=== PATIENT | male | born 1950 | race Caucasian/White ===

== ENCOUNTER 2017-09-27 01:14 | Inpatient (IN) | payer OTHER, MEDICARE ==
[~2017-09-27] VITALS: Ht 182.9 cm; Wt 89.4 kg
[~2017-09-27 01:14] MED LIST: ADVIL200 M1 PO; ALFUZOSIN HCL E10 MG PO; BYSTOLIC5 M1 PO; LISINOPRIL20 M1 PO; METROGEL60 GM TOP; MULTIVITAMINS1 EAC9 PO; SALINE NASAL SP30 ML NASB; TRAZODONE HCL50 M1 PO; TURMERIC500 M2 PO; VITAMIN C500 M9 PO
--- NOTE | 2017-09-27 11:00 | Admission Core Measures ---
Acute Coronary Syndrome (CM) ACS Core Measures Acute Coronary Syndrome Diagnosis No Congestive Heart Failure (NEW) CHF Core Measures Congestive Heart Failure Diagnosis No Cerebrovascular Accident (NEW) CVA Core Measures CVA/TIA Diagnosis No Venous Thromboembolism VTE Core Sonia (View Protocol) VTE Risk Factors Surgery No Mechanical VTE Prophylaxis d/t N/A MechProphylax Ordered No VTE Pharm Prophylaxis d/t NA PharmProphylax ordered Problem List As ranked by this Provider includes Assessment & Plan 1. Unilateral primary osteoarthritis, left hip HOME MEDS Home Med List Alfuzosin HCl (Alfuzosin HCl ER) 10 MG TAB.ER.24H 1 TAB PO QPM PROSTATE ( Reported) Ascorbic Acid (Vitamin C) (Unknown Strength) CAPSULE (Unknown Dose) PO DAILY SUPPLEMENT (Reported) Ibuprofen (Advil) 200 MG CAPSULE 1 CAP PO DAILY PAIN/INFLAMMATION (Reported) Lisinopril 20 MG TABLET 1 TAB PO QPM BP (Reported) Metronidazole (Metrogel) 1 % GEL..GRAM. 1 AUDREY TOP QPM ROSACEA (Reported) Multiple Vitamin (Multivitamins) 1 EACH TABLET 1 TAB PO DAILY SUPPLEMENT ( Reported) Nebivolol HCl (Bystolic) 5 MG TABLET 1 TAB PO QAM BP (Reported) Sodium Chloride (Saline Nasal [place]) 0.65 % SPRAY 1 SPRAY NASB PRN NASAL DRYNESS (Reported) Trazodone HCl 50 MG TABLET 1 TAB PO QPM SLEEP (Reported) Turmeric Root Extract (Turmeric) (Unknown Strength) CAPSULE (Unknown Dose) PO DAILY SUPPLEMENT (Reported)
--- NOTE | 2017-09-27 11:15 | RADIOLOGY REPORT ---
EXAMINATION: AP and lateral views of the left hip CLINICAL INFORMATION: PACU COMPARISON: None available TECHNIQUE: Two views of the left hip. FINDINGS: Postoperative changes following left total hip arthroplasty. Alignment of the prosthesis elements which appear intact. No acute fractures. There is soft tissue gas and soft tissue swelling within the soft tissues adjacent to the operative site. There is hypertrophic bone along the upper margin of the acetabulum. IMPRESSION: Expected postoperative changes following left total hip arthroplasty.
[2017-09-27] MEDS ORDERED: ASPIRIN EC81 M1 PO (11:20)
[2017-09-27] MEDS ORDERED: MIRALAX17 G1 PO (11:20)
[2017-09-27] MEDS ORDERED: COLACE100 M1 PO (11:20)
[2017-09-27] MEDS ORDERED: DILAUDID2 M1 PO (11:20)
[2017-09-27] MEDS ORDERED: INDOMETHACIN25 M1 PO (11:20)
[2017-09-27] MEDS ORDERED: PRILOSEC OTC20 M1 PO (11:20)
--- NOTE | 2017-09-27 11:23 | Patient Discharge Instructions ---
Discharge Instructions General Discharge Information You were seen/treated for: Left hip pain related to unilateral primary osteoarthritis You had these procedures: Left total hip replacement Watch for these problems: Increasing pain despite the use of pain medication Increasing redness, warmth or swelling Drainage of any type from incision Inability to bear weight on operative leg Persistent nausea and vomiting Fever greater than 101.5 degrees Do not soak the wound: Yes No bath, but you may shower: Yes Other wound care: Please keep wound clean and dry. No ointments or lotions of any type on or near incision at any time. No exceptions. Your dressing will be changed by your nurse on the second day after your surgery. Daily dry dressing changes are recommended each day thereafter. Do not soak your wound in a bath at any time until otherwise indicated by your surgeon. You may shower, please dry wound immediately after shower with a clean towel. Special Instructions: Aspirin: You are taking this medication to help prevent blood clot formation. Please take with food to protect your stomach lining. Please take as directed. Constipation: Pain medication can cause constipation. Dr. Gaines has recommended that you take Colace and miralax each day. You may discontinue this medication if you develop loose stool or diarrhea. If you wish to continue this medication, it is available over the counter. If you are unable to move your bowels after several days, if you are unable to pass gas and are developing bloating, nausea, or vomiting as a result, please contact your doctor. Diet Continue normal diet: Yes Recommended Diet: Regular Activity Full Activity/No Limits: No Activity Self Limited: Yes Pounds, do NOT lift more than: 10 Acute Coronary Syndrome Inclusion Criteria At DC or during hospital stay patient has or had the following: ACS DIAGNOSIS No Discharge Core Measures Meds if any: Prescribed or Continued at Discharge Meds if any: NOT Prescribed or Continued at Discharge Congestive Heart Failure Inclusion Criteria At DC or during hospital stay patient has or had the following: CHF DIAGNOSIS No Discharge Core Measures Meds if any: Prescribed or Continued at Discharge Meds if any: NOT Prescribed or Continued at Discharge Cerebrovascular accident Inclusion Criteria At DC or during hospital stay patient has or had the following: CVA/TIA Diagnosis No Discharge Core Measures Meds if any: Prescribed or Continued at Discharge Meds if any: NOT Prescribed or Continued at Discharge Venous thromboembolism Inclusion Criteria VTE Diagnosis No VTE Type NONE VTE Confirmed by (Test) NONE Discharge Core Measures - Per Current guidelines, there needs to be overlap - treatment for the first 5 days of Warfarin therapy. - If discharged on Warfarin prior to 5 days of - overlap therapy, the patient will need to be - assessed for post discharge needs including - *Post discharge parental anticoagulation - *Warfarin and/or parental anticoagulation education - *Follow up date to check INR post discharge At least 5 days overlap therapy as Inpatient No Meds if any: Prescribed or Continued at Discharge Note: Overlap Therapy is Warfarin and Anticoagulant Meds if any: NOT Prescribed or Continued at Discharge
--- NOTE | 2017-09-27 11:25 | Surgical Discharge Summary ---
Visit Information Visit Dates Admission Date: 09/27/17 History of Present Illness Chief Complaint: Left hip pain related to unilateral primary osteoarthritis Medical History Isolation History: Standard Surgical History Pertinent Surgical History: non-contributory Review of Systems: See h&p Hospital Course Course Attending Physician: Aris Gaines MD Primary Care Physician: Miri Franz MD Hospital Course: Patient was admitted to the hospital for an elective total joint replacement. The procedure was tolerated well and patient was transferred to a general surgical floor. Diet was advanced and tolerated, and the patient voided spontaneously. The patient was evaluated and treated by physical therapy. At the time of hospital discharge, the vital signs were stable, neurovascular status was intact, and pain was controlled with the use of oral pain medications. Allergies: Coded Allergies: No Known Allergies (09/24/17) Disposition Summary Disposition Principal Diagnosis: Unilateral primary osteoarthritis left hip Additional Diagnosis: None Discharge Disposition: home health services Discharge Instructions General Discharge Information Code Status: Full Code Patient's Diet: Regular, advance as tolerated Patient's Activity: WBAT Follow-Up Instructions/Appts: Follow up with Dr. Gaines in 6 weeks from date of surgery. Please call his office to arrange and/or confirm this appointment. Medications at Discharge Discharge Medications: Stop taking the following medications: Ibuprofen (Advil) 200 MG CAPSULE ORAL DAILY Continue taking these medications: Nebivolol HCl (Bystolic) 5 MG TABLET 1 Tablet ORAL Every Morning Alfuzosin HCl (Alfuzosin HCl ER) 10 MG TAB.ER.24H 1 Tablet ORAL Every night Lisinopril (Lisinopril) 20 MG TABLET 1 Tablet ORAL Every night Trazodone HCl (Trazodone HCl) 50 MG TABLET 1 Tablet ORAL Every night Metronidazole (Metrogel) 1 % GEL..GRAM. 1 Application On the skin Every night Multiple Vitamin (Multivitamins) 1 EACH TABLET 1 Tablet ORAL DAILY Ascorbic Acid (Vitamin C) (Unknown Strength) CAPSULE Unknown Dose ORAL DAILY Turmeric Root Extract (Turmeric) (Unknown Strength) CAPSULE Unknown Dose ORAL DAILY Sodium Chloride (Saline Nasal [place]) 0.65 % SPRAY 1 [place] Both sides of nose as needed for NASAL DRYNESS Start taking the following new medications: Aspirin (Ecotrin*) 81 MG TABLET.DR 1 Tablet ORAL TWICE DAILY Qty = 60 No Refills Docusate Sodium (Colace) 100 MG CAPSULE 1 Capsule ORAL TWICE DAILY Qty = 14 No Refills Instructions: DISCONTINUE USE IF YOU DEVELOP LOOSE STOOL OR DIARRHEA Polyethylene Glycol 3350 (Miralax) 17 GRAM POWD.PACK 1 Packet ORAL DAILY Qty = 7 No Refills Instructions: dissolve in water, DISCONTINUE USE IF YOU DEVELOP LOOSE STOOL OR DIARRHEA Indomethacin (Indomethacin) 25 MG CAPSULE 1 Capsule ORAL THREE TIMES DAILY Qty = 30 No Refills Instructions: with food Hydromorphone HCl (Dilaudid) 2 MG TABLET 1-2 Tablet ORAL EVERY 4-6 HOURS NEEDED as needed for PAIN Qty = 36 No Refills Omeprazole Magnesium (Prilosec Otc) 20 MG TABLET.DR 1 Tablet ORAL DAILY Qty = 30 No Refills
[2017-09-27 11:51] VITALS: BP 118/66
--- NOTE | 2017-09-27 12:51 | PN- Orthopedic ---
Subjective Subjective: POST-OP NOTE No complaints. Tolerating lunch. No nausea. Not yet out of bed. No dizziness. No shortness of breath. No chest pains. Due to void this afternoon. Objective Vital Signs and I&Os Vital Signs Date Time Temp Pulse Resp B/P B/P Pulse O2 O2 Flow FiO2 Mean Ox Delivery Rate 09/27 1151 98.0 54 20 118/66 97 Room Air Intake & Output 09/27 1600 09/27 0800 09/27 0000 09/26 1600 09/26 0800 09/26 0000 Intake Total Output Total Balance Patient 197 lb Weight Weight Reported by Patient Measurement Method Physical Exam: General - alert & oriented x 3. comfortable. no acute distress. Lungs - clear bilaterally. no w/r/r. Cardiac - s1s2. reg. Abdomen - soft. nontender. Extremities - warm bilaterally. left hip dressing c/d/i. no drains. no hematoma. ice in place. calves soft and nontender b/l. athrombics in place. still numb in left lower leg, but slowly regaining sensation and movement. Current Medications: Current Medications Sig/Milagros Start time Last Medication Dose Route Stop Time Status Admin Acetaminophen 1,000 MG Q6 09/27 1200 AC IV 09/28 0601 Acetaminophen 0 .STK-MED ONE 09/27 0735 DC PO Acetaminophen 975 MG ONCE 09/27 0000 DC PO 09/27 2359 Aspirin Buffered 81 MG BID 09/270 AC PO Cefazolin Sodium 2 GM IQ8 09/27 1600 AC N/A 1 UNIT IV 09/28 0029 Cefazolin Sodium 2,000 MG ONCE 09/27 0000 DC IV 09/27 2359 Dextrose/Sodium 1,000 ML .[id number] 09/27 1200 AC 09/27 Chloride IV 1217 Docusate Sodium 100 MG BID 09/27 1000 AC PO Hydromorphone HCl 2 MG Q4P PRN 09/27 1200 AC PO Hydromorphone HCl 4 MG Q4P PRN 09/27 1200 AC PO Indomethacin Sodium 25 MG Q8H 09/27 1600 AC PO Lisinopril 20 MG QPM 09/27 2200 AC PO Morphine Sulfate 2 MG Q2P PRN 09/27 1200 AC IV Multivitamins 1 TAB DAILY 09/27 1000 AC PO Nebivolol 5 MG DAILY 09/27 1000 AC PO Omeprazole 40 MG DAILY AC 09/28 0700 AC PO Ondansetron HCl 4 MG Q6P PRN 09/27 1200 AC IV Oxycodone HCl 0 .STK-MED ONE 09/27 0735 DC PO Oxycodone HCl 10 MG ONCE 09/27 0000 DC PO 09/27 2359 Polyethylene Glycol 17 GM DAILY 09/27 1000 AC PO Promethazine HCl 12.5 MG Q6P PRN 09/27 1200 AC IV 10/04 0959 Sodium Chloride 2 SPRAY DAILY NEEDED PRN 09/27 1200 AC DIA Tamsulosin HCl 0.4 MG QPM 09/27 2200 AC PO Trazodone HCl 50 MG AT BEDTIME NEED.. 09/27 1200 AC PO Assessment/Plan Assessment/Plan This 66 year old male with hx htn, bph, rosecea, is POD#0 s/p left total hip replacement for primary osteoarthritis advance diet as tolerated pain control as ordered ирина-operative ancef x 2 doses asa / indocin PT eval when regains sensation / motor function due to void this afternoon home meds ordered bowel regime ordered f/u am labs d/c home tomorrow will d/w Core Measures Venous Thromboembolism VTE Risk Factors Surgery No Mechanical VTE Prophylaxis d/t N/A MechProphylax Ordered No VTE Pharm Prophylaxis d/t NA PharmProphylax ordered
--- NOTE | 2017-09-27 14:45 | Operative Report ---
Operative/Inv Procedure Report Surgery Date: 09/27/17 Name of Procedure: Left total hip replacement Pre-Operative Diagnosis: Primary left hip DJD Post-Operative Diagnosis: Same Estimated Blood Loss: 250 Surgeon/Counter Supervisor: Liana CHAMBERS,Aris Mena Anesthesia: block Operative/Procedure Note Note: Description of Procedure: The patient was taken to the operating room and positively identified. After induction of spinal anesthesia and administration of appropriate pre-operative antibiotics, the patient was positioned supine on the operating room table and all bony prominences were well padded. After performing a surgical timeout, the left lower extremity was prepped and draped in the usual sterile fashion. A direct anterior approach was made to the left hip. The incision was carried sharply through superficial soft tissues to the level of the fascia. Meticulous hemostasis was maintained with Bovie electocautery. The fascia over the tensor fascia finn muscle was opened sharply and the interval between the TFL and the sartorius was entered bluntly taking care to stay lateral to the lateral femoral cutaneous nerve. Retractors were placed around the femoral neck and the pericapsular fat was identified. The ascending branches of the lateral femoral circumflex vessels were identified and carefully coagulated. The pericapsular fat and anterior capsule were then resected. A napkin ring osteotomy was performed and the femoral head was removed without difficulty. Attention was then turned to the acetabulum. After appropriate placement of retractors, the acetabulum was exposed. Soft tissue was cleaned from the acetabular margin and notch. Overhanging osteophytes were removed and the teardrop was exposed. The acetabulum was then sequentially reamed to accept a 64 mm [place] Tritanium hemispherical solid shell. This was impacted into place in the appropriate position and fitted with a 36 mm Trident X3 zero degree polyethylene insert. Attention was then turned to the femur. After performing the appropriate ligament releases, the proximal femur was exposed. It was then sequentially broached to accept a size 9 Naomi secure fit advanced 127 neck angle stem. This was trialed for leg length and stability. The trial component was removed and the final component was impacted into place. The trunnion was carefully cleaned and fit with a 36 mm, +5 Biolox delta ceramic femoral head. The hip was reduced and put through a full range of motion and found to be stable. The articular space was then irrigated with sterile saline. The periarticular soft tissues were infilitrated with Marcaine. The fascial layer was closed with interrupted #1 vicryl suture and the skin was re-approximated with interrupted 2 -0 vicryl. The skin was closed with a running 3-0 V-Lock suture. Steri-strips and a sterile dressing were applied. The patient was awakened and taken to the recovery room in satisfactory condition.
[2017-09-27 14:48] VITALS: BP 129/72
[2017-09-27 16:35] VITALS: BP 140/70
[2017-09-27 19:01] VITALS: BP 150/70
[2017-09-27 21:55] VITALS: BP 140/60
[2017-09-27 22:00] VITALS: BP 140/60
[2017-09-28 02:47] VITALS: BP 132/76
[2017-09-28 06:50] VITALS: BP 120/70
[2017-09-28 08:32] LABS: ABSOLUTE BASOPHIL COUNT 0 /CUMM (0.0-0.2); ABSOLUTE EOSINOPHIL COUNT 0.1 /CUMM (0.0-0.7); ABSOLUTE GRANULOCYTE CT 4.5 /CUMM (1.4-6.5); ABSOLUTE LYMPH COUNT 1.2 /CUMM (1.2-3.4); BASOPHIL % 0.3 % (0.0-2.0); EOSINOPHIL % 1.1 % (0-5); GRANULOCYTE % 65.7 % (42.2-75.2); HEMATOCRIT 35.2 % (42-52); MEAN CORPUSCULAR HGB 31.3 PG (27.0-31.0); MEAN CORPUSCULAR HGB CONC 33.4 G/DL (33.0-37.0); MEAN CORPUSCULAR VOLUME 93.5 FL (80.0-94.0); MEAN PLATELET VOLUME 7.7 FL (7.4-10.4); PLATELET COUNT 227 /CUMM (130-400); RBC DISTRIBUTION WIDTH 13.7 % (11.5-14.5); RED BLOOD CELL CT 3.77 /CUMM (4.70-6.10); WHITE BLOOD CELL COUNT 6.8 /CUMM (4.8-10.8)
--- NOTE | 2017-09-28 09:11 | PN- Orthopedic ---
Subjective Subjective: Feels well. Pain controlled. Voiding spontanously. Passing flatus. Cleared by PT. Eager to go home today. Offers no other complaints. Objective Vital Signs and I&Os Vital Signs Date Time Temp Pulse Resp B/P B/P Pulse O2 O2 Flow FiO2 Mean Ox Delivery Rate 09/28 0650 98.9 62 20 120/70 95 Room Air 09/28 0247 98.6 64 20 132/76 95 Room Air 09/27 2200 99.1 74 20 140/60 98 Room Air 09/27 2155 99.1 74 20 140/60 98 09/27 202 74 150/70 09/27 202 74 150/70 09/27 1901 98.1 74 20 150/70 97 09/27 1635 98.1 60 20 140/70 94 09/27 1448 97.7 67 18 129/72 98 Room Air 09/27 1320 98.0 54 20 118/66 09/27 1151 98.0 54 20 118/66 97 Room Air Intake & Output 09/28 1600 09/28 0800 09/28 0000 09/27 1600 09/27 0800 09/27 0000 Intake Total 1180 1080 Output Total 1275 500 100 Balance -95 580 -100 Intake, IV 700 600 Intake, Oral 480 480 Output, Urine 1275 500 100 Patient 197 lb 197 lb Weight Weight Reported by Patient Measurement Method Physical Exam: Gen - NAD Cardiac - S1S2 Lungs - CTAB Ext - L hip dressing c/d/i, mild swelling, no signs of infection, dorsi/plantar flexion intact, sensory in tact, soft compartments, teds, alps in place, no edema or calf tenderness. Current Medications: Current Medications Sig/Milagros Start time Last Medication Dose Route Stop Time Status Admin Acetaminophen 1,000 MG Q6 09/27 1200 DC 09/28 IV 09/28 0601 0605 Acetaminophen 975 MG ONCE 09/27 0000 DC PO 09/27 2359 Aspirin Buffered 81 MG BID 09/27 2200 AC 09/28 PO 0918 Cefazolin Sodium 2 GM IQ8 09/27 1600 DC 09/28 N/A 1 UNIT IV 09/28 0029 0001 Cefazolin Sodium 2,000 MG ONCE 09/27 0000 DC IV 09/27 2359 Dextrose/Sodium 1,000 ML .[id number] 09/27 1200 AC 09/28 Chloride IV 0146 Docusate Sodium 100 MG BID 09/27 1000 AC 09/28 PO 0917 Hydromorphone HCl 2 MG Q4P PRN 09/27 1200 AC 09/27 PO 2024 Hydromorphone HCl 4 MG Q4P PRN 09/27 1200 AC PO Indomethacin Sodium 25 MG Q8H 09/27 1600 AC 09/28 PO 0918 Lisinopril 20 MG QPM 09/27 2200 AC 09/27 PO 2024 Morphine Sulfate 2 MG Q2P PRN 09/27 1200 AC 09/27 IV 2143 Multivitamins 1 TAB DAILY 09/27 1000 AC 09/28 PO 0918 Nebivolol 5 MG DAILY 09/27 1000 AC 09/28 PO 0919 Omeprazole 40 MG DAILY AC 09/28 0700 AC 09/28 PO 0605 Ondansetron HCl 4 MG Q6P PRN 09/27 1200 AC IV Oxycodone HCl 10 MG ONCE 09/27 0000 DC PO 09/27 2359 Polyethylene Glycol 17 GM DAILY 09/27 1000 AC 09/28 PO 0919 Promethazine HCl 12.5 MG Q6P PRN 09/27 1200 AC IV 10/04 0959 Sodium Chloride 2 SPRAY DAILY NEEDED PRN 09/27 1200 AC DIA Tamsulosin HCl 0.4 MG QPM 09/27 2199 AC 09/27 PO 2024 Trazodone HCl 50 MG AT BEDTIME NEED.. 09/27 1200 AC PO Results Last 48 Hours of Labs: Laboratory Tests 09/28 0738 Chemistry Sodium (137 - 145 mmol/L) 140 Potassium (3.5 - 5.1 mmol/L) 4.3 Chloride (98 - 107 mmol/L) 102 Carbon Dioxide (22 - 30 mmol/L) 30 Anion Gap (5 - 16) 7 BUN (9 - 20 mg/dL) 12 Creatinine (0.7 - 1.2 mg/dL) 0.7 Estimated GFR (>60 ml/min) > 60 BUN/Creatinine Ratio (7 - 25 %) 17.1 Hematology CBC w Diff NO MAN DIFF REQ WBC (4.8 - 10.8 /CUMM) 6.8 RBC (4.70 - 6.10 /CUMM) 3.77 L Hgb (14.0 - 18.0 G/DL) 11.8 L Hct (42 - 52 %) 35.2 L MCV (80.0 - 94.0 FL) 93.5 MCH (27.0 - 31.0 PG) 31.3 H MCHC (33.0 - 37.0 G/DL) 33.4 RDW (11.5 - 14.5 %) 13.7 Plt Count (130 - 400 /CUMM) 227 MPV (7.4 - 10.4 FL) 7.7 Gran % (42.2 - 75.2 %) 65.7 Lymphocytes % (20.5 - 51.1 %) 18.1 L Monocytes % (1.7 - 9.3 %) 14.8 H Eosinophils % (0 - 5 %) 1.1 Basophils % (0.0 - 2.0 %) 0.3 Absolute Granulocytes (1.4 - 6.5 /CUMM) 4.5 Absolute Lymphocytes (1.2 - 3.4 /CUMM) 1.2 Absolute Monocytes (0.10 - 0.60 /CUMM) 1.0 H Absolute Eosinophils (0.0 - 0.7 /CUMM) 0.1 Absolute Basophils (0.0 - 0.2 /CUMM) 0 Assessment/Plan Assessment/Plan 66 M with h/o htn, bph, rosecea who is POD 1 s/p L THR for primary oa, stable for d/c OOB w/ PT, WBAT Reg diet, d/c IVF Pain regimen prn and indocin DVT ppx - alps, teds, asa 81 bid GI ppx on board Home meds on board Bowel regime on board Labs reviewed D/c home with [facility] Core Measures Venous Thromboembolism VTE Risk Factors Surgery No Mechanical VTE Prophylaxis d/t N/A MechProphylax Ordered No VTE Pharm Prophylaxis d/t NA PharmProphylax ordered
== END 2017-09-28 12:50 | disposition home health service (06) | DRG 470 ==
LOC: SDA 01:14 → ENRESERV 10:23 → ENTRNSPT 11:10 → EDTRNSPT 11:18 → EDTRNSPTSTS 11:18 → CMPTRNSPT 11:26 → 2NA 11:27 → ENPENDDIS 09-28 09:19 → ENTRNSPT 09-28 12:32 → EDTRNSPT 09-28 12:46 → EDTRNSPTSTS 09-28 12:46 → 2NA 09-28 12:50 → CMPTRNSPT 09-28 12:58
PROVIDERS: Nurse Practitioner
PROC: 0SRB04Z Replacement of Left Hip Joint with Ceramic on Polyethylene Synthetic Substitute, Open Approach (ICD-10-PCS; principal; 2017-09-27)
DX: M16.12 Unilateral primary osteoarthritis, left hip (principal); I10 Essential (primary) hypertension; N40.0 Benign prostatic hyperplasia without lower urinary tract symptoms; M48.00 Spinal stenosis, site unspecified; K58.9 Irritable bowel syndrome, unspecified; Z85.828 Personal history of other malignant neoplasm of skin
CPT/HCPCS: 2NASP; 36415; 73502-LT; 82436; 97110-GO; 97116-GO; 97161-GP; C9399; J0131; J0690; J0735; J2405; J2550; J3490; J7042